=== PATIENT | female | born 1980 | race Caucasian/White ===

== ENCOUNTER 2018-05-13 23:55 | Inpatient (IN) | payer MEDICAID, OTHER ==
[2018-05-14] MEDS ORDERED: Acetaminophen TAB* 325 MG ONE (05:58)
[2018-05-14] MEDS ORDERED: Acetaminophen TAB* 325 MG PO PRN ×3 (05:59→14:27)
[2018-05-14] MEDS ORDERED: Bupivacaine-MPF SPINAL* 7.5 MG/ML - 2ML AMP ONE (12:12)
[2018-05-14] MEDS ORDERED: Morphine PF AMP (0.5MG/ML)* 5 MG/10 ML AMP ONE (12:12)
[2018-05-14] MEDS ORDERED: ceFAZolin 2 GM in NS PREMIX(*) 2 GM/100 ML BAG IVPB ONE (12:17)
[2018-05-14] MEDS ORDERED: ceFAZolin 2 GM PREMIX in ORs 2 GM/50 ML BAG IVPB ONE (12:29)
[2018-05-14] MEDS ORDERED: Sodium Citrate/Citric Acid* 15 ML UDC ONE (12:33)
[2018-05-14] MEDS ORDERED: Sodium Citrate/Citric Acid* 15 ML UDC PO ONE (12:38)
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
[2018-05-14] MEDS ORDERED: OXYTOCIN* 10 UNITS/ML 1 ML VIAL ONE (13:36)
[2018-05-14] MEDS ORDERED: Midazolam* 1 MG/ML 2 ML VIAL (2 MG) ONE (13:41)
[2018-05-14] MEDS ORDERED: Nalbuphine* 10 MG/ML 1 ML VIAL IV PRN (13:53)
[2018-05-14] MEDS ORDERED: Ondansetron INJ* 2 MG/ML VIAL IV PRN (13:53)
[2018-05-14] MEDS ORDERED: diPHENhydraMINE IV* 50 MG/ML 1 ml VIAL (BENADRYL) IV PRN (13:53)
[2018-05-14] MEDS ORDERED: Morphine VIAL* 4 MG/ML VIAL (1 ml vial) IV PRN (13:53)
[2018-05-14] MEDS ORDERED: Naloxone* 0.4 MG/ML 1 ML VIAL IV PRN (13:53)
[2018-05-14] MEDS ORDERED: fentaNYL* 50 MCG/ML 2 ML VIAL (100 MCG VIAL) IV PRN (13:53)
[2018-05-14] MEDS ORDERED: DiMENhydriNATE IV* 50 MG/ML VIAL IV PUSH PRN (13:53)
[2018-05-14] MEDS ORDERED: HYDROcodone/ACETAMIN 5-325 MG* 1 TAB PO PRN (13:53)
[2018-05-14] MEDS ORDERED: Ketorolac INJ* 30 MG/ML 1 ML VIAL IV PRN (13:53)
[2018-05-14] MEDS ORDERED: Lidocaine 2% PF * 5 ML VIAL ONE (13:55)
[2018-05-14] MEDS ORDERED: Phenylephrine INJ* 10 MG/ML 1 ML VIAL (10 MG) ONE (13:56)
[2018-05-14] MEDS ORDERED: fentaNYL* 50 MCG/ML 2 ML VIAL (100 MCG VIAL) ONE (13:59)
[2018-05-14] MEDS ORDERED: Glycerin ADULT SUPP PR PRN (14:27)
[2018-05-14] MEDS ORDERED: Zolpidem TAB* 5 MG PO PRN (14:27)
[2018-05-14] MEDS ORDERED: Dibucaine 1% 28.35 GM TUBE PR PRN (14:27)
[2018-05-14] MEDS ORDERED: Witch Hazel PAD* JAR TOPICAL PRN (14:27)
[2018-05-14] MEDS ORDERED: Ketorolac INJ* 30 MG/ML 1 ML VIAL ONE (14:46)
[2018-05-14] MEDS: Buprenorphine TAB* 8 MG PO SCH (15:42)
[2018-05-14] MEDS: oxyCODONE/Acetamin 5/325 MG* TAB PO PRN ×2 (16:29→20:17)
[2018-05-14] MEDS: Nicotine GUM* 2 MG PO PRN ×2 (16:54→21:04)
[2018-05-14] MEDS ORDERED: oxyCODONE TAB* 5 MG TAB PO PRN (18:36)
[2018-05-14] MEDS: Docusate CAP* 100 MG PO SCH (20:17)
[2018-05-14] MEDS: Simethicone TAB* 80 MG TAB.CHEW PO SCH (20:17)
[2018-05-14] MEDS: Ibuprofen TAB* 600 MG PO PRN (20:33)
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
[2018-05-15] MEDS: oxyCODONE/Acetamin 5/325 MG* TAB PO PRN ×6 (00:18→21:44)
[2018-05-15] MEDS: Ibuprofen TAB* 600 MG PO PRN ×4 (02:50→18:42)
[2018-05-15] MEDS: Simethicone TAB* 80 MG TAB.CHEW PO SCH ×5 (03:03→21:44)
[2018-05-15] MEDS: Nicotine GUM* 2 MG PO PRN (05:27)
[2018-05-15 05:47] LABS: ABS Basophils 0.1 10^3/ul (0-0.2); ABS Eosinophils 0.1 10^3/ul (0-0.6); ABS Monocytes 0.7 10^3/ul (0-0.8); ABS Neutrophils 5.6 10^3/ul (1.5-7.7); ABS Nucleated RBC 0 10^3/ul; Eosinophil % 1.2 % (0-6); Hematocrit 30 % (35-47); Hemoglobin 9.9 g/dl (12.0-16.0); Lymphocyte % 23.5 % (25-47); Mean Corpuscular HGB Conc 33 g/dl (31-36); Mean Corpuscular Hemoglobin 29 pg (27-31); Mean Corpuscular Volume 89 fL (80-97); Mean Platelet Volume 8.4 fL (7.4-10.4); Nucleated Red Blood Cells % 0.1; Platelet Count 231 10^3/ul (150-450); Red Blood Count 3.38 10^6/ul (4.00-5.40); Red Cell Distribution Width 19 % (10.5-15); White Blood Count 8.5 10^3/ul (3.5-10.8)
[2018-05-15] MEDS: Docusate CAP* 100 MG PO SCH ×3 (08:05→21:43)
[2018-05-15] MEDS: Buprenorphine TAB* 8 MG PO SCH (09:22)
[2018-05-15] MEDS: Ferrous Gluconate TAB* 324 MG TAB PO SCH ×2 (09:25→21:43)
[2018-05-16] MEDS: Ibuprofen TAB* 600 MG PO PRN ×3 (00:38→19:16)
[2018-05-16] MEDS: Nicotine GUM* 2 MG PO PRN ×2 (00:41→18:08)
[2018-05-16] MEDS: oxyCODONE/Acetamin 5/325 MG* TAB PO PRN ×6 (02:02→22:04)
[2018-05-16] MEDS: Simethicone TAB* 80 MG TAB.CHEW PO SCH ×4 (09:03→22:04)
[2018-05-16] MEDS: Ferrous Gluconate TAB* 324 MG TAB PO SCH ×2 (09:03→22:04)
[2018-05-16] MEDS: Buprenorphine TAB* 8 MG PO SCH (09:03)
[2018-05-16] MEDS: Docusate CAP* 100 MG PO SCH ×3 (09:03→22:04)
[2018-05-17] MEDS: Ibuprofen TAB* 600 MG PO PRN ×3 (00:39→12:39)
[2018-05-17] MEDS: oxyCODONE/Acetamin 5/325 MG* TAB PO PRN ×5 (01:57→19:49)
[2018-05-17] MEDS: Nicotine GUM* 2 MG PO PRN ×3 (05:46→11:29)
[2018-05-17 08:00] VITALS: BP 129/69
[2018-05-17] MEDS: Buprenorphine TAB* 8 MG PO SCH (08:59)
[2018-05-17] MEDS: Simethicone TAB* 80 MG TAB.CHEW PO SCH ×4 (08:59→21:15)
[2018-05-17] MEDS: Ferrous Gluconate TAB* 324 MG TAB PO SCH ×2 (08:59→21:14)
[2018-05-17] MEDS: Docusate CAP* 100 MG PO SCH ×3 (09:00→21:14)
[2018-05-17] MEDS ORDERED: oxyCODONE/Acetamin 5/325 MG* TAB PO PRN (16:46)
[2018-05-17] MEDS ORDERED: Ibuprofen TAB* 600 MG PO PRN (16:47)
[2018-05-17] MEDS ORDERED: Nicotine GUM* 2 MG PO PRN (16:47)
== END 2018-05-17 21:00 | disposition home or self-care (01) | DRG 540 ==
LOC: MCHOBOUT 23:55 → MCHOB 05-14 11:22
PROVIDERS: ADMIT Obstetrics & Gynecology; ATTEND Obstetrics & Gynecology
PROC: 0UH90HZ Insertion of Contraceptive Device into Uterus, Open Approach (ICD-10-PCS; 2018-05-14)
PROC: 10D00Z1 Extraction of Products of Conception, Low, Open Approach (ICD-10-PCS; principal; 2018-05-14 13:11)
DX: O34.211 Maternal care for low transverse scar from previous cesarean delivery (principal); O98.42 Viral hepatitis complicating childbirth; O48.0 Post-term pregnancy; O99.334 Smoking (tobacco) complicating childbirth; F17.210 Nicotine dependence, cigarettes, uncomplicated; B19.20 Unspecified viral hepatitis C without hepatic coma; F11.21 Opioid dependence, in remission; Z3A.41 41 weeks gestation of pregnancy; Z37.0 Single live birth
CPT/HCPCS: 36415; 76805; 80053; 80307; 80348; 81003; 83735; 85025; 86592; 86703; 86706; 86762; 86803; 86900; 86901; 87340; 87491; 87522; 87591; 88307; A9270-GY; G0480; J0690; J1885; J2250; J2270; J2590; J3010